=== PATIENT | male | born 1970 | race Caucasian/White ===

== ENCOUNTER 2023-10-25 11:32 | Outpatient (REF) | payer MEDICARE, MEDICAID, SELFPAY | END 2023-10-25 11:33 | disposition home or self-care (01) | LOC: HO.LAB 11:32 | PROVIDERS: PCP Internal Medicine; Visit Provider Psychiatry & Neurology Psychiatry | DX: Z79.899 Other long term (current) drug therapy (principal) | CPT/HCPCS: 36415; 80159; 85048 ==

== ENCOUNTER 2025-07-21 14:31 | Emergency (ER) | payer OTHER, SELFPAY ==
[2025-07-21 14:41] VITALS: BP 142/90; PULSE 52; O2SAT 99
[2025-07-21 14:48] VITALS: BP 140/87; PULSE 71; RESP 18; TEMP 36.2; O2SAT 98; BMI 27.1
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
[2025-07-21 16:54] LABS: MANUAL DIFF FLAG NO
[2025-07-21 16:57] LABS: Hematocrit 41.1 % (42.0-52.0); Hemoglobin 13.9 g/dl (14.0-18.0); Imm Gran Abs Auto 0.06 X10*3/uL (0.00-0.03); Imm Gran Pct Auto 0.6 % (0.0-0.4); Lymphocytes Absolute Auto 2.1 X10*3/uL (1.2-4.9); Mean Corpuscular HGB Conc 33.8 g/dl (31.0-36.0); Mean Corpuscular Hemoglobin 31.2 pg (27.0-33.0); Mean Corpuscular Volume 92.2 fL (80.0-98.0); NRBC Abs Auto 0.000 X10*3/uL (0.0-0.012); NRBC Pct Auto 0.0 /100WBC (0.0-0.2); Platelet Count 203 X10*3/uL (160-400); Red Blood Count 4.46 X10*6/uL (4.60-5.80); White Blood Count 10.4 X10*3/uL (4.8-10.8)
[2025-07-21 17:14] LABS: Alanine Aminotransferase 18 U/L (0-40); Albumin Level 4.8 g/dL (3.5-5.0); Alkaline Phosphatase 101 U/L (39-117); Anion Gap 13 (12-20); Aspartate Amino Transferase 22 U/L (5-37); Blood Urea Nitrogen 12 mg/dL (9-16); Calcium 9.5 mg/dL (8.4-10.2); Carbon Dioxide 28 mmol/L (22-29); Chloride 107 mmol/L (96-108); Creatinine Clr Calc Pharmacy 111.7; Estimated Glomerular Filt Rate > 60; Magnesium 2.2 mg/dL (1.6-2.6); Potassium 5.5 mmol/L (3.3-5.1); Sodium 142 mmol/L (135-145); Total Protein 7.3 g/dL (6.5-8.0)
--- NOTE | 2025-07-21 18:02 | PC.NURSE ---
med rec done by pharmacy and then confirmed with pt by this RN, pt states he took clozaril at his normal dose this morning but before that hadn't taken any of his meds for 5 days. also states that his olanzapine just got increased to 5mg bid and that he had not yet started taking this dose yet but was to start this new dose today
[2025-07-21 18:53] LABS: Cannabinoid Screen Urine Not Detected (Not Detect)
--- NOTE | 2025-07-21 19:10 | PHA.MEDREC ---
Addendum entered by Rolo Botello PharmD 07/21/25 19:14: reviewed Original Note: Pharmacy Consult ? Medication Reconciliation Pharmacy has reviewed the medication reconciliation done by nursing. claims match med list.
[2025-07-21 21:43] VITALS: BP 122/66; PULSE 77; RESP 18; TEMP 36.4; O2SAT 97
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
--- NOTE | 2025-07-21 23:52 | PC.NURSE ---
per Dr. Vizcarra, override medication for restraints.
--- NOTE | 2025-07-22 08:54 | PC.NURSE ---
Assumed care, report received. Pt wakes easily and is greeted by Security to discuss unit expectations. Pt remains calm and is cooperative. He uses the bathroom, eats his breakfast and is given AM medications. Pt is asked to stay in his room unitl evaluation from the care team, he is watching TV.
[2025-07-22 12:48] VITALS: PULSE 77; RESP 18
--- NOTE | 2025-07-22 15:18 | PC.NURSE ---
Pt has remained calm and cooperative. He has spent time showering, watching TV, talking with staff and walking around. His conversation remains unrelated to the topic. He has a flat affect with little facial expression or changes. He has been compliant with medicaitons.
[2025-07-22 18:41] VITALS: BP 122/66; PULSE 77; RESP 18; TEMP 36.7
== END 2025-07-22 18:42 ==
PROVIDERS: Emergency Provider Emergency Medicine
DX: F25.9 Schizoaffective disorder, unspecified (principal); R45.1 Restlessness and agitation; Z79.899 Other long term (current) drug therapy; Z51.81 Encounter for therapeutic drug level monitoring
CPT/HCPCS: 36415; 80048; 80076; 80307; 83735; 85025; 96372; 99285; J1200; J1630; J1790; J2250; S9485

== ENCOUNTER 2025-08-23 16:22 | Emergency (ER) | payer OTHER, SELFPAY ==
[2025-08-23 16:34] VITALS: BP 117/75; PULSE 90; O2SAT 97; BMI 28.9
[2025-08-23 16:41] VITALS: BP 146/78; PULSE 107; RESP 16; TEMP 36.6; O2SAT 99
--- NOTE | 2025-08-23 16:45 | PC.NURSE ---
Aleksandar presents to the ED today reporting an increase in auditory and visual hallucinations since missing two doses of his Clozapine last week. He reports he took all of his medications this morning and last night as prescribed but continues to have these hallucinations. He reports that he is seeing colors and shapes and hearing random noises rather than specific voices. Pt is calm and cooperative at this time, offering no complaints to this RN. Pts affect is flat
--- OUTSIDE RECORDS SUMMARY | 2025-08-23 16:59 | XMS_ITS | Data Portability ---
Author Organization [employer] [facility], [employer] [facility] Address [address] [place] [id number] Care Team Providers Care Clinical Case Manager Name Role Phone HIM CCA OTHER [facility] Primary Care Provider Assessment Encounter Date Assessment Date Assessment LastModified by Organization Details LastModified Time 04/10/2024 04/10/2024 I have reviewed and agree with the assessment and plan as documented by the director investor relations. I provided real-time medical direction for this encounter and was immediately available to provide additional phone-based assistance as needed. History as noted in EMR and by director investor relations. I would add / emphasize: Patient seen for report of rash around his belt line. AVSS afebrile with no reports of fevers or chills, well-appearing per medic. No rash or irritation observed by director investor relations. Patient reports he keeps his belts tight and wonders if this is what causes the erythema. Advised to avoid over tightening his belt and trialing a barrier cream to the area should he notice the rash rising again. Patient in agreement and will follow-up with care team. pallfather Not available 04/30/2024 15:32:28 Plan of Treatment Reminders Order Date Submit Date Provider Last Modified By Organization Details Last Modified Time Details Appointments None record ed. Lab None record ed. Referral None record ed. Procedures None record ed. Surgeries None record ed. Imaging None record ed. Medication Orders None record ed. Patient TargetsNo targets recorded. Patient InstructionsNo instructions recorded. Reason for Referral None Reported. Medical Equipment None Reported. Allergies Allergen ID Allergen Name Allergen Category Reaction Reaction Severity Criticality Documentation Date Start Date Code Code System Note Provider Name and Address Organization Details Recorded Time 7136 Product containin g penicilli n (product) medicatio n Not available Not available Not available 08/20/2024 [id number] [id number] SNOMED Not Available [employer] [facility] [employer] 10/29/202 4 03:48:17 Medications Name Sig Start Date Stop Date Status Note LastModified by Organization Details LastModified Time acetaminophen 325 mg tablet active Not Available Not Availabl e Not Available benztropine 0.5 mg tablet active Not Available Not Available No t Available lamotrigine 200 mg tablet active Not Available Not Available No t Available trazodone 50 mg tablet active Not Available Not Available Not Available clozapine 100 mg tablet active Not Available Not Available No t Available senna 8.6 mg tablet active Not Available Not Available Not Available ondansetron HCl 4 mg tablet active Not Available Not Available Not Available olanzapine 5 mg tablet active Not Available Not Available Not Available olanzapine 10 mg tablet active Not Available Not Available No t Available Enema Disposable 19 gram-7 gram/118 mL active Not Available Not Available Not Available olanzapine 2.5 mg tablet active Not Available Not Available No t Available amantadine HCl 100 mg capsule active Not Available Not Availab le Not Available magnesium hydroxide 400 mg/5 mL oral suspension active Not Available Not Available N ot Available levetiracetam 250 mg tablet active Not Available Not Availabl e Not Available amlodipine 10 mg tablet active Not Available Not Available No t Available bisacodyl 10 mg rectal suppository active Not Available Not Available Not Available benztropine 1 mg tablet active Not Available Not Available No t Available docusate sodium 100 mg capsule active Not Available Not Availab le Not Available omeprazole 20 mg capsule,delayed release active Not Available Not Available Not Available olanzapine 15 mg tablet active Not Available Not Available No t Available bisacodyl 5 mg tablet,delayed release active Not Available Not Available Not Available polyethylene glycol 3350 17 gram/dose oral powder active Not Available Not Available Not Available ketoconazole 2 % topical cream active Not Available Not Availa ble Not Available atropine 1 % eye drops active Not Available Not Available No t Available olanzapine 20 mg tablet active Not Available Not Available No t Available lamotrigine 100 mg tablet active Not Available Not Available No t Available lactulose 10 gram/15 mL oral solution active Not Available Not Available Not Available clozapine 50 mg tablet active Not Available Not Available Not Available clozapine 200 mg tablet active Not Available Not Available No t Available Banophen 50 mg capsule active Not Available Not Available Not Available Vitals Date Recorded Oxygen saturation Oxygen saturation in Arterial blood by Pulse oximetry Respiratory rate Heart rate Body temperature Systolic And Diastolic Provider Name and Address Organization Details Last Updated DateTime 4 98 % 98 % 16 /min 82 /min 98.6 [degF] 120/78 mm[Hg] Not Available [employer] [facility] [employer] 12:52:32 Social History None recorded. Functional Status None recorded. Mental Status None recorded. Family History Nothing Reported. Medical History No medical history recorded. Past Encounters Encounter ID Performer Location Encounter Start Date Encounter Closed Date Diagnosis/Indication Diagnosis SNOMED-CT Code Diagnosis ICD10 Code Diagnosis IMO Codes Diagnosis Note [id number] Anmol Cosby MD Main - [address] [phone] 04/21/2024 12:52:30 04/30/2024 17:10:24 Localized eruption of skin [id number] R21 Health Concerns Section Related Observation LastModified by Organization Detai ls LastModified Time None Recorded Concern Status LastModified by Organization Details LastModified Time None Recorded Advance Directives Directive None Recorded Payers Insurance Date Sequence Insurance Name Policy Number Policy Hughes Covered Member ID Hughes Member ID Guarantor Name 04/30/2024 1 [facility] - DOS ON OR AFTER 2023 - DUAL ELIGIBLE - LONGTERM OPTIONS AND ONE CARE (MEDICARE REPLACEMENT/ADV ANTAGE - HMO) Aleksandar Michaud [id number] Aleksandar Michaud Notes Date Note Type Note Provider Name and Address Organization Details Recorded Time 04/10/2024 text/html [facility] Nurse Triage Notes (Elicia Lafleur): Chief Complaints: Rash PMH: Hypertension Allergies: Penicillin Comments: Patient calling to request visit for rash. Patient reporting rash to groin areas ongoing intermittently for 3 weeks. Skin intact. Not currently applying any topical ointments. .................... .................... .................... .................... .................... .................... .................... . [facility] Coordinator Note From Jose Vang: Dispatched to the call address for the male with a rash. Upon arrival Pt states he has a rash that comes and goes. He states its right on his waist line and flairs up when its hot and he is sweating. Pt has not used any cream or ointment on the area. He states he does use a belt that he keeps fairly tight. Pt denies fevers.Pt was found opening door, CAOx4, airway open and patent, breathing non labored, able to speak in full sentences, -JVD, -HEENT, skin PWD with good turgor, abd soft non tender/distended, pupils PERRL, +CMSx4, lung sounds CTA, A-febrile. No reddening or irritation noted in the area of complaint. [facility] consulted. Pt was advised to used a barrier cream such as Buttpaste when these conditions arise. Red flags discussed. ALL times are approx. .................... .................... .................... .................... .................... .................... .................... . Disposition: Fulfilled Anmol Cosby MD [address] [facility],[address], [place], [address], [employer] 04/30/2024 15:32:40
--- NOTE | 2025-08-23 17:03 | PC.NURSE ---
RE: med rec This RN completed med rec with verbal verification from patient. Meds obtained from last visit here as well as from medication rec history and then verbally verified with patient. He reports he took all of his regularly scheduled medications last night as well as this morning per prescription
[2025-08-23 17:05] LABS: Appearance Urine Clear; Glucose Urine UA Negative (Negative); PH 7.5 (5.0-9.0); Specific Gravity - Urine <= 1.005 (1.005-1.025)
[2025-08-23 17:14] LABS: Cannabinoid Screen Urine Not Detected (Not Detect)
[2025-08-23 17:26] LABS: MANUAL DIFF FLAG NO
[2025-08-23 17:28] LABS: Hematocrit 40.6 % (42.0-52.0); Hemoglobin 13.9 g/dl (14.0-18.0); Imm Gran Abs Auto 0.05 X10*3/uL (0.00-0.03); Imm Gran Pct Auto 0.5 % (0.0-0.4); Lymphocytes Absolute Auto 1.3 X10*3/uL (1.2-4.9); Mean Corpuscular HGB Conc 34.2 g/dl (31.0-36.0); Mean Corpuscular Hemoglobin 30.6 pg (27.0-33.0); Mean Corpuscular Volume 89.4 fL (80.0-98.0); NRBC Abs Auto 0.000 X10*3/uL (0.0-0.012); NRBC Pct Auto 0.0 /100WBC (0.0-0.2); Platelet Count 177 X10*3/uL (160-400); Red Blood Count 4.54 X10*6/uL (4.60-5.80); White Blood Count 9.6 X10*3/uL (4.8-10.8)
--- NOTE | 2025-08-23 17:28 | ED_ITS ---
HPI - Psych General Chief Complaint: Psychiatric Symptoms Stated Complaint: auditory & visual hallucinations x4 days Time Seen by Provider: 08/23/25 16:38 Source: patient, EMS and old records reviewed Mode of arrival: EMS Limitations: other (poor historian) History of Present Illness ED Provider: MO MASON Narrative: 55 yo male with PMH of schizoaffective disorder present with c/o not taking his medications x 3 days. He admits he is acting weird. He has no SI/HI. His VNA came today and was worried about his behaviors. He has AH and VH hallucinations. He has no abdominal pain but threw up x 3 yesterday. NO diarrhea. He is able to eat and drink now. He has no other complaints. Related Data Home Medications ?Medication ?Instructions ?Recorded ?Confirmed amantadine HCl 100 mg capsule 100 mg PO BID 07/21/2510/23/24 amlodipine 10 mg tablet 10 mg PO DAILY 07/21/2511/16 benztropine 0.5 mg tablet 0.5 mg PO DAILY 07/21/2511/16 clozapine 100 mg tablet 100 mg PO BEDTIME 07/21/25 1 10/23/24 clozapine 200 mg tablet 200 mg PO BEDTIME 07/21/2510/23/24 lamotrigine 200 mg tablet 400 mg PO BEDTIME 07/21/2510/23/24 olanzapine 5 mg tablet 5 mg PO BID 07/21/25 5 glycopyrrolate 1 mg tablet 1 mg PO BID 08/23/25 Allergies Allergy/AdvReac Type Severity Reaction Status Date / Time Penicillins (PCN) Allergy Mild Rash Verified 08/23/25 16:36 Review of Systems 2 Review of Systems: Constitutional : No Fever, No Chills ENT/Mouth : No Ear Pain, No Nasal Congestion, No sore throat Eyes: No Eye Pain, No Swelling, No Redness Cardiovascular : No Chest Pain, No SOB Respiratory : No Cough, No Sputum, No Dyspnea Gastrointestinal : No Nausea, No Vomiting, No Diarrhea, No Hematochezia, No Melena Genitourinary : No Dysuria, No Urinary Frequency, No Hematuria Musculoskeletal : No Myalgias Skin : No Skin Lesions, No rash Neuro : No Weakness, No Numbness, No Paresthesias, No Dizziness, No Headache Psych : positive Anxiety, positive Depression, no SI/HI, pos AH/VH All other systems reviewed and are negative [facility] Past Medical History Attestation statement: The following information was validated with the patient. Source: old records reviewed Medical History Schizoaffective disorder Social History Social History Patient Tobacco Use Status: Tobacco use Unknown Smoked in Last 30 Days: Yes Use of substances other than those prescribed or required for medical reasons: No Advance Directives: No Advance Directives Information Provided: No Physical Exam 2 Vital Signs: Vital Signs: Last Vital Signs Temp 97.8 F 08/24/25 10:25 Pulse 90 08/24/25 10:25 Resp 18 08/24/25 10:25 BP 105/68 08/24/25 10:25 Pulse Ox 98 08/24/25 10:25 O2 Del Method Room Air 08/24/25 06:14 BMI result Body Mass Index 28.9 Appearance: Alert. Oriented X3. No acute distress. Eyes: Pupils equal, round and reactive to light. ENT: Pharynx normal. Neck: Normal inspection. Neck supple. CVS: Normal heart rate and rhythm. Pulses normal. Respiratory: No respiratory distress. Breath sounds normal. Abdomen: Soft and nontender. he is eating a drinking Skin: Skin warm and dry. Normal skin color. Extremities: No lower extremity edema. Neuro: Oriented X 3. No motor deficit. No sensory deficit. cranial nerve exam not applicable Course Course Course Narrative: 08/24/25 10am phys obs ended. discharged home MO Medications Administered Discontinued Medications Generic Name Dose Route Start Last Admin Trade Name Ronen PRN Reason Stop Dose Admin Amantadine HCl 100 mg 08/23/25 23:00 08/24/25 08:47 Amantadine Hcl 100 Mg Capsule PO 100 mg BID ASIF Administration Amlodipine Besylate 10 mg 08/24/25 09:00 08/24/25 08:03 Amlodipine Besylate 10 Mg Tablet PO 10 mg DAILY ASIF Administration Protocol Benztropine Mesylate 0.5 mg 08/24/25 09:00 08/24/25 08:03 Benztropine Mesylate 0.5 Mg Tablet PO 0.5 mg DAILY ASIF Administration Glycopyrrolate 1 mg 08/23/25 23:00 08/24/25 08:03 Glycopyrrolate 1 Mg Tablet PO 1 mg BID ASIF Administration Lamotrigine 400 mg 08/23/25 23:00 08/23/25 23:44 Lamotrigine 100 Mg Tablet PO Not Given BEDTIME ASIF Lorazepam 2 mg 08/23/25 21:03 08/23/25 21:09 Lorazepam 1 Mg Tablet PO 08/23/25 21:04 2 mg ONCE ONE Administration Lorazepam 2 mg 08/23/25 22:56 08/23/25 23:00 Lorazepam 1 Mg Tablet PO 08/23/25 22:57 2 mg ONCE ONE Administration Olanzapine 5 mg 08/23/25 21:03 08/23/25 21:09 Olanzapine 5 Mg Tablet PO 08/23/25 21:04 5 mg ONCE ONE Administration Olanzapine 5 mg 08/24/25 09:00 08/24/25 08:03 Olanzapine 5 Mg Tablet PO 5 mg BID ASIF Administration Olanzapine 10 mg 08/23/25 22:56 08/23/25 23:00 Olanzapine 10 Mg Tablet PO 08/23/25 22:57 10 mg ONCE ONE Administration Medical Decision Making Medical Decision Making [facility] Narrative: 55 yo male with PMH of schizoaffective disorder present with c/o not taking his meds x 3 days with AH/VH he has no SI/HI. He did vomit yesterday but is tolerating PO now. Will obtain labs, UA, request CARE team In a.m. patient was evaluated by care team. Not suicidal not homicidal. Feels well. Wants to go home. Currently in stable condition. Differential Diagnosis Differential Diagnoses: The differential diagnosis associated with the presentation includes schizoaffective disorder, lyte abnormality, viral syndrome Admission/Observation Consideration of admission/observation: Escalation of care including admission/observation considered phys obs started at 558pm pending CARE team Consult Healthcare Provider Management of the patient was discussed with: Behavioral Health Provider Lab Data [facility] Lab Attestation statement: I reviewed the patient's lab results. will repeat BMP in AM 08/23/25 17:22 08/23/25 17:22 Labs: Lab Results 08/23/25 08/23/25 Range/Units 16:56 17:22 WBC 9.6 (4.8-10.8) X10*3/uL RBC 4.54 L (4.60-5.80) X10*6/uL Hgb 13.9 L (14.0-18.0) g/dl Hct 40.6 L (42.0-52.0) % MCV 89.4 (80.0-98.0) fL MCH 30.6 (27.0-33.0) pg MCHC 34.2 (31.0-36.0) g/dl RDW 13.1 (11.0-16.0) % Plt Count 177 (160-400) X10*3/uL MPV 9.8 (9.4-12.4) fL Immature Gran % (Auto) 0.5 H (0.0-0.4) % Neut % (Auto) 73.9 H (45-73) % Lymph % (Auto) 13.8 L (20-40) % [place] % (Auto) 11.3 H (2-11) % Eos % (Auto) 0.2 (0-4) % Baso % (Auto) 0.3 (0-2) % Lymph # (Auto) 1.3 (1.2-4.9) X10*3/uL [place] # (Auto) 1.1 (0.1-1.2) X10*3/uL Eos # (Auto) 0.0 (0.0-0.4) X10*3/uL Baso # (Auto) 0.0 (0.0-0.2) X10*3/uL Abs Immat Gran (auto) 0.05 H (0.00-0.03) X10*3/uL Absolute Neuts (auto) 7.1 (2.0-8.3) x10*3/uL Absolute Nucleated RBC 0.000 (0.0-0.012) X10*3/uL Nucleated RBC % (auto) 0.0 (0.0-0.2) /100WBC Sodium 132 L (135-145) mmol/L Potassium 3.6 D (3.3-5.1) mmol/L Chloride 98 (96-108) mmol/L Carbon Dioxide 24 (22-29) mmol/L Anion Gap 14 (12-20) BUN 10 (9-16) mg/dL Creatinine 0.87 (0.5-1.4) mg/dL Estim Creat Clear Calc 102.4 Estimated GFR > 60 Random Glucose 96 (60-115) mg/dL Calcium 8.5 D (8.4-10.2) mg/dL Total Bilirubin 0.6 (0.0-1.0) mg/dL Direct Bilirubin 0.2 (0.0-0.5) mg/dL AST 31 (5-37) U/L ALT 20 (0-40) U/L Alkaline Phosphatase 101 (39-117) U/L Total Protein 7.3 (6.5-8.0) g/dL Albumin 4.8 (3.5-5.0) g/dL Lipase 9 (8-78) U/L Urine Color Yellow Urine Appearance Clear Urine pH 7.5 (5.0-9.0) Ur Specific Jacob <= 1.005 (1.005-1.025) Urine Protein Negative (Neg-Trace) mg/dL Urine Glucose (UA) Negative (Negative) mg/dL Urine Ketones Trace (Negative) mg/dL Urine Blood Negative (Negative) Urine Nitrite Negative (Negative) Ur Leukocyte Esterase Negative (Negative) Urine Opiates Screen Not Detected (Not Detect) Ur Buprenorphine Scrn Not Detected (Not Detect) ng/mL Ur Oxycodone Screen Not Detected (Not Detect) ng/mL Urine Methadone Screen Not Detected (Not Detect) ng/mL Urine Fentanyl Screen Not Detected (Not Detect) Ur Barbiturates Screen Not Detected (Not Detect) Ur Phencyclidine Scrn Not Detected (Not Detect) Ur Amphetamines Screen Not Detected (Not Detect) U Benzodiazepines Scrn Not Detected (Not Detect) Urine Cocaine Screen Not Detected (Not Detect) U Marijuana (THC) Screen Not Detected (Not Detect) Ethyl Alcohol < 10 mg/dL Independent Historian Clinical information obtained from an independent historian. History obtained from or confirmed by: EMS External Record Review External record reviewed: Inpatient record and Outpatient record Social Determinants Patient?s care significantly limited by Social Determinants of Health including: Problems related to primary support group Discharge Plan Discharge Clinical Impression: Schizoaffective disorder Patient Disposition: Home, Self-Care Instructions: Schizoaffective Disorder (ED) Additional Instructions: Please follow-up as per care team Prescriptions: No Action benztropine 0.5 mg tablet 0.5 mg PO DAILY lamotrigine 200 mg tablet 400 mg PO BEDTIME clozapine 100 mg tablet 100 mg PO BEDTIME olanzapine 5 mg tablet 5 mg PO BID Rx Instructions: 5mg is a new dose, he was supposed to start today 07/21. was taking 2.5mg and last took that 5 days ago amantadine HCl 100 mg capsule 100 mg PO BID amlodipine 10 mg tablet 10 mg PO DAILY clozapine 200 mg tablet 200 mg PO BEDTIME glycopyrrolate 1 mg tablet 1 mg PO BID Referrals: Physician,Aurea J [Primary Care Provider, Medical] - 08/26/25 Interventions: [place]-Suicide Risk Severity Scale Last Done: 08/23/25 16:41 ED Discharge Assessment Last Done: 08/24/25 10:25 Discharge Date/Time: 08/24/25 10:26 Print Language: Malay
[2025-08-23 17:46] LABS: Alanine Aminotransferase 20 U/L (0-40); Albumin Level 4.8 g/dL (3.5-5.0); Alkaline Phosphatase 101 U/L (39-117); Anion Gap 14 (12-20); Aspartate Amino Transferase 31 U/L (5-37); Blood Urea Nitrogen 10 mg/dL (9-16); Calcium 8.5 mg/dL (8.4-10.2); Carbon Dioxide 24 mmol/L (22-29); Chloride 98 mmol/L (96-108); Creatinine Clr Calc Pharmacy 102.4; Estimated Glomerular Filt Rate > 60; Potassium 3.6 mmol/L (3.3-5.1); Sodium 132 mmol/L (135-145); Total Protein 7.3 g/dL (6.5-8.0)
[2025-08-23 17:56] LABS: Lipase 9 U/L (8-78)
--- NOTE | 2025-08-23 21:49 | PC.NURSE ---
Assumed care at 1845. Presents with flat affect, but calm and cooperative with care. Visible on the unit, alternating between spending time in room and watching tv in the milieu. Endorses +AVH, but does not elaborate further. Denies SI/HI. Feels safe on the unit. Agreeable to alert staff if feeling unsafe. Appeared restless to t/w, frequently pacing throughout the unit. MD Rivera made aware, 1x order for 2mg Ativan & 5mg Zyprexa obtained/administered, pending effectiveness. No signs of aggression observed. 15 minute safety checks ongoing. Plan of care ongoing...
--- NOTE | 2025-08-24 00:07 | PC.NURSE ---
Per MD Rivera, additional verification is needed for medications. Pt unsure of VNA contact information. Medications ordered accidentally, MD Morales unaware of current plan regarding medications. HS scheduled medications HELD.
[2025-08-24 06:14] VITALS: BP 105/68; PULSE 90; RESP 18; O2SAT 98
--- NOTE | 2025-08-24 07:00 | PC.NURSE ---
Assumed care of patient at 0645, patient calm and cooperative, sitting in common area in pod, offering no complaints to this RN. Continue plan of care for CARE team re-assessment
--- NOTE | 2025-08-24 07:50 | PHA.MEDREC ---
Pharmacy Consult ? Medication Reconciliation Pharmacy has reviewed the medication reconciliation done by RN. Confirmed with AGNES Ross that patients last dose of clozaril was 08/22/25 per visiting nursing
--- NOTE | 2025-08-24 08:09 | MHC.CARE ---
Pt denies SI, HI, and A/V/H. He has been medication compliant since arriving in the ED. Pt does not present as an imminent risk or meet the criteria for a higher level of care. He will D/C home to follow up with current providers.
[2025-08-24 10:25] VITALS: BP 105/68; PULSE 90; RESP 18; TEMP 36.6; O2SAT 98
== END 2025-08-24 10:26 | disposition home or self-care (01) ==
PROVIDERS: Emergency Provider Emergency Medicine
DX: F25.9 Schizoaffective disorder, unspecified (principal); R11.10 Vomiting, unspecified; F99 Mental disorder, not otherwise specified; Z79.899 Other long term (current) drug therapy; Z51.81 Encounter for therapeutic drug level monitoring; Z91.148 Patient's other noncompliance with medication regimen for other reason
CPT/HCPCS: 36415; 80053; 80307; 81003; 82248; 83690; 85025; 99285; S9485

== ENCOUNTER 2025-08-27 14:00 | Emergency (ER) | payer OTHER, SELFPAY ==
[2025-08-27 14:10] VITALS: BP 140/70; PULSE 64; O2SAT 97; BMI 27.1
[2025-08-27 14:16] VITALS: BP 136/79; PULSE 64; RESP 22; O2SAT 96
--- NOTE | 2025-08-27 14:19 | ED.GENADULT ---
HPI - General Adult General Chief complaint: Psychiatric Symptoms Stated complaint: section 12 Time Seen by Provider: 08/27/25 14:15 Source: patient and EMS Mode of arrival: EMS Limitations: no limitations History of Present Illness ED Provider: Xin Musa PA-C HPI narrative: Patient is a 55 year old assigned male at with a history of schizoaffective disorder presenting to the emergency department today with delusions. Patient states that he feels fine. N reported the patient is delusional in reporting that he is a [place]. Patient denies any other complaints at this time. Related Data Home Medications ?Medication ?Instructions ?Recorded ?Confirmed amantadine HCl 100 mg capsule 100 mg PO BID 07/21/25 08/27/25 amlodipine 10 mg tablet 10 mg PO DAILY 07/21/25 08/27/25 benztropine 0.5 mg tablet 0.5 mg PO DAILY 07/21/25 08/27/25 clozapine 100 mg tablet 300 mg PO BEDTIME 07/21/25 08/27/25 lamotrigine 200 mg tablet 400 mg PO BEDTIME 07/21/25 08/27/25 olanzapine 5 mg tablet 5 mg PO BID 07/21/25 08/27/25 glycopyrrolate 1 mg tablet 1 mg PO BID 08/23/25 08/27/25 clozapine 200 mg tablet 200 mg PO BEDTIME 08/28/25 08/28/25 Allergies Allergy/AdvReac Type Severity Reaction Status Date / Time Penicillins (PCN) Allergy Mild Rash Verified 08/27/25 14:14 Review of Systems Constitutional: Constitutional: Reports as per HPI Eyes: Eyes: Reports as per HPI ENT: Reports as per HPI Cardiovascular: Cardiovascular: Reports as per HPI Respiratory: Respiratory: Reports as per HPI Gastrointestinal: Gastrointestinal: Reports as per HPI Genitourinary: Genitourinary: Reports as per HPI Musculoskeletal: Musculoskeletal: Reports as per HPI Integumentary/Breasts: Skin/Breast: Reports as per HPI Neurologic: Reports as per HPI Psychiatric: Psychiatric: Reports as per HPI Endocrine: Endocrine: Reports as per HPI Hematologic/Lymphatic: Hematologic/Lymphatic: Reports as per HPI Allergic/Immunologic: Allergic/Immunologic: Reports as per HPI PMF Past Medical History Attestation statement: The following information was validated with the patient. Source: old records reviewed and nursing notes reviewed Medical History Schizoaffective disorder Social History Social History Unable to assess alcohol history related to: Unknown Patient Tobacco Use Status: Tobacco use Unknown Advance Directives: No Advance Directives Information Provided: No Do you have a plan to hurt others: No Plan Physical Exam ED Vital Signs: Vital Signs - 24 hr 08/28/25 08:26 Temperature 98.1 F Pulse Rate 73 Blood Pressure 130/80 Pulse Oximetry 98 Oxygen Delivery Method Room Air BMI result Body Mass Index 27.1 Const General: cooperative, no acute distress, alert and awake Nutritional Appearance: well nourished Orientation/consciousness: patient oriented x3 HENMT Head: Yes normal to inspection and Yes atraumatic Ears: hearing grossly normal bilaterally and external ears normal General nose exam: Normal external nose present, no nasal discharge noted and no epistaxis Face and sinus: Yes normal facial exam, No abrasion and No laceration Mouth: Normal oral and palatal mucosa present, no drooling and no muffled voice Eyes General: appearance normal, both eyes and all related structures Periorbital: periorbital findings normal Eyelids: Yes eyelids normal Conjunctivae: conjunctivae normal Pupils: Equal, round and reactive pupils present EOM: EOMs intact bilaterally Neck Neck: Yes normal visual inspection and Yes full ROM Resp Effort & Inspection: normal respiratory effort and able to speak in complete sentences Neuro General: patient oriented x3, moves all extremities and CN's II-XI intact bilaterally Cranial nerves: Yes Equal, round and reactive pupils present Cognition (Neuro): normal cognition Extrem General: Yes normal to inspection, Yes full ROM and Yes capillary refill normal Psych Appearance: grossly normal Mental Status: mental status grossly normal Attitude: cooperative Course Course Course Narrative: 9:46 AM 08/28/2025 (Dr. Fred Brown): Time: 09:47 Date: 08/28/25 Provider: Fred Brown, DO You were seen in our Emergency Department today for treatment of a behavioral health issue. It is important after your visit that you follow up with either your behavioral health provider or a primary care doctor within 7 days.? Time: 09:47 Date: 08/28/25 Provider: Fred Brown, DO Patient in physician observation for psychiatric evaluation.? No acute events reported overnight. No current complaints. VS stable.? Patient is in bed search status. Will continue to monitor. 08/28/2025 1620 Accepted at [facility]. Patient will be discharged. Medical Decision Making Medical Decision Making [facility] Narrative: Patient is a 55 year old assigned male at with a history of schizoaffective disorder presenting to the emergency department today with delusions. Patient's physical exam was as noted in the physical exam portion of this note. Patient's blood work was unremarkable. I explained my physical exam findings as well as all test results to the patient. I answered all questions asked by the patient. Patient's disposition is pending CARE team evaluation. Patient placed in observation pending CARE team evaluation and disposition determination at 1418 on 08/27/2025. 08/27/2025 1530 Xin Musa PA-C ---> Patient evaluated by the CARE team. Patient has been deemed an inpatient level of psychiatric care. Patient will either be admitted here at [facility] on our psychiatric floor or transferred to an appropriate psychiatric unit. Differential Diagnosis Differential Diagnoses: The differential diagnosis associated with the presentation includes Delusional Schizoaffective disorder Admission/Observation Consideration of admission/observation: Escalation of care including admission/observation considered Patient will either be admitted here at [facility] on our psychiatric floor or transferred to an appropriate psychiatric unit. Consult Healthcare Provider Management of the patient was discussed with: Behavioral Health Provider (recommend inpatient level of psychiatric care as noted in the MDM Rationale portion of this note. ) Lab Data [facility] Lab Attestation statement: I reviewed the patient's lab results. My interpretation of these results are in the MDM Rationale portion of this note. 08/27/25 14:30 08/27/25 14:30 Labs: Lab Results 08/27/25 Range/Units 14:30 WBC 9.6 (4.8-10.8) X10*3/uL RBC 4.57 L (4.60-5.80) X10*6/uL Hgb 14.1 (14.0-18.0) g/dl Hct 41.5 L (42.0-52.0) % MCV 90.8 (80.0-98.0) fL MCH 30.9 (27.0-33.0) pg MCHC 34.0 (31.0-36.0) g/dl RDW 13.6 (11.0-16.0) % Plt Count 242 D (160-400) X10*3/uL MPV 9.9 (9.4-12.4) fL Immature Gran % (Auto) 1.3 H (0.0-0.4) % Neut % (Auto) 60.4 (45-73) % Lymph % (Auto) 27.4 (20-40) % [place] % (Auto) 10.2 (2-11) % Eos % (Auto) 0.2 (0-4) % Baso % (Auto) 0.5 (0-2) % Lymph # (Auto) 2.6 (1.2-4.9) X10*3/uL [place] # (Auto) 1.0 (0.1-1.2) X10*3/uL Eos # (Auto) 0.0 (0.0-0.4) X10*3/uL Baso # (Auto) 0.1 (0.0-0.2) X10*3/uL Abs Immat Gran (auto) 0.12 H (0.00-0.03) X10*3/uL Absolute Neuts (auto) 5.8 (2.0-8.3) x10*3/uL Absolute Nucleated RBC 0.000 (0.0-0.012) X10*3/uL Nucleated RBC % (auto) 0.0 (0.0-0.2) /100WBC Smear Tech's Comments VERIFIED Sodium 137 (135-145) mmol/L Potassium 4.2 (3.3-5.1) mmol/L Chloride 102 (96-108) mmol/L Carbon Dioxide 25 (22-29) mmol/L Anion Gap 14 (12-20) BUN 7 L (9-16) mg/dL Creatinine 0.82 (0.5-1.4) mg/dL Estim Creat Clear Calc 111.7 Estimated GFR > 60 Random Glucose 91 (60-115) mg/dL Calcium 9.2 D (8.4-10.2) mg/dL Total Bilirubin 0.6 (0.0-1.0) mg/dL AST 25 (5-37) U/L ALT 25 (0-40) U/L Alkaline Phosphatase 106 (39-117) U/L Total Protein 7.6 (6.5-8.0) g/dL Albumin 4.9 (3.5-5.0) g/dL Salicylates < 5.0 L (15-30) mg/dL Acetaminophen < 3 (<30) mcg/mL Ethyl Alcohol < 10 mg/dL COVID-19 (ALIA) Negative (Negative) COVID-19 Clin Com See Note Independent Historian Clinical information obtained from an independent historian. History obtained from or confirmed by: EMS (EMS provided additional history and confirmed the history provided by the patient. ) Critical Care Time Critical Care Time Critical Care Time: Yes Total Critical Care Time: 38 Attestation: I spent 38 minutes of Critical Care Time with this patient. This does not include time spent on separately reported billable procedures. Discharge Plan Discharge Clinical Impression: Delusions Patient Disposition: Xfer Psychiatric Hosp Transfer Details: [facility] Prescriptions: No Action benztropine 0.5 mg tablet 0.5 mg PO DAILY lamotrigine 200 mg tablet 400 mg PO BEDTIME clozapine 100 mg tablet 300 mg PO BEDTIME olanzapine 5 mg tablet 5 mg PO BID Rx Instructions: 5mg is a new dose, he was supposed to start today 07/21. was taking 2.5mg and last took that 5 days ago amantadine HCl 100 mg capsule 100 mg PO BID amlodipine 10 mg tablet 10 mg PO DAILY glycopyrrolate 1 mg tablet 1 mg PO BID clozapine 200 mg tablet 200 mg PO BEDTIME Interventions: [place]-Suicide Risk Severity Scale Last Done: 08/28/25 16:17 Print Language: Greenlandic
[2025-08-27 14:55] LABS: Hematocrit 41.5 % (42.0-52.0); Hemoglobin 14.1 g/dl (14.0-18.0); Imm Gran Pct Auto 1.3 % (0.0-0.4); Mean Corpuscular HGB Conc 34.0 g/dl (31.0-36.0); Mean Corpuscular Hemoglobin 30.9 pg (27.0-33.0); Mean Corpuscular Volume 90.8 fL (80.0-98.0); Platelet Count 242 X10*3/uL (160-400); Red Blood Count 4.57 X10*6/uL (4.60-5.80); White Blood Count 9.6 X10*3/uL (4.8-10.8)
[2025-08-27 14:56] LABS: Imm Gran Abs Auto 0.12 X10*3/uL (0.00-0.03); Lymphocytes Absolute Auto 2.6 X10*3/uL (1.2-4.9); NRBC Abs Auto 0.000 X10*3/uL (0.0-0.012); NRBC Pct Auto 0.0 /100WBC (0.0-0.2); SCAN SMEAR FLAG 1
[2025-08-27 15:08] LABS: Acetaminophen LAB < 3 mcg/mL (<30); Alanine Aminotransferase 25 U/L (0-40); Albumin Level 4.9 g/dL (3.5-5.0); Alkaline Phosphatase 106 U/L (39-117); Anion Gap 14 (12-20); Aspartate Amino Transferase 25 U/L (5-37); Blood Urea Nitrogen 7 mg/dL (9-16); Calcium 9.2 mg/dL (8.4-10.2); Carbon Dioxide 25 mmol/L (22-29); Chloride 102 mmol/L (96-108); Creatinine Clr Calc Pharmacy 111.7; Estimated Glomerular Filt Rate > 60; Potassium 4.2 mmol/L (3.3-5.1); Salicylate < 5.0 mg/dL (15-30); Sodium 137 mmol/L (135-145); Total Protein 7.6 g/dL (6.5-8.0)
[2025-08-27 15:10] LABS: COVID-19 Test Negative (Negative); IDNOW Serial# 55D5AD1C
[2025-08-27 15:36] LABS: MANUAL DIFF FLAG SCAN
--- OUTSIDE RECORDS SUMMARY | 2025-08-27 17:51 | XMS_ITS | Data Portability ---
Author Organization Topic - [employer] [facility], [place] [employer] [facility] Address [address] [place] [id number] Care Team Providers Care Customer Care Consultant Name Role Phone HIM [facility] OTHER [facility] Primary Care Provider Assessment Encounter Date Assessment Date Assessment LastModified by Organization Details LastModified Time 04/10/2024 04/10/2024 I have reviewed and agree with the assessment and plan as documented by the data collection specialist. I provided real-time medical direction for this encounter and was immediately available to provide additional phone-based assistance as needed. History as noted in EMR and by data collection specialist. I would add / emphasize: Patient seen for report of rash around his belt line. AVSS afebrile with no reports of fevers or chills, well-appearing per medic. No rash or irritation observed by data collection specialist. Patient reports he keeps his belts tight [...] Name and Address Organization Details Recorded Time 8446 Product containin g penicilli n (product) medicatio n Not available Not available Not available 08/20/2024 [id number] SNOMED Not Available [employer] - production 10/29/202 [...] ICD10 Code Diagnosis IMO Codes Diagnosis Note [id number] Anmol Cosby MD Main - [address] [phone] 04/21/2024 12:52:30 04/30/2024 17:10:24 Localized eruption of skin [id number] R21 Health Concerns Section Related Observation LastModified by Organization Detai ls LastModified Time None Recorded Concern Status LastModified by Organization Details LastModified Time None Recorded Advance Directives Directive None Recorded Payers Insurance Date Sequence Insurance Name Policy Number Policy Hughes Covered Member ID Hughes Member ID Guarantor Name 04/30/2024 1 [facility] - DOS ON OR AFTER 2023 - DUAL ELIGIBLE - NURSING HOME OPTIONS AND ONE CARE (MEDICARE REPLACEMENT/ADV ANTAGE - HMO) Aleksandar Michaud [id number] Aleksandar Michaud Notes Date Note Type Note [...] .................... .................... .................... .................... .................... .................... . Financial Underwriter Note From Jose Vang: Dispatched to the [...] . Disposition: Fulfilled Anmol Cosby MD [address], [place], [address], Topic - [place] 04/30/2024 15:32:40
--- NOTE | 2025-08-28 05:10 | PC.NURSE ---
Presents with flat affect, able to make needs known. Not visible on the unit, spent majority of evening in bed resting. Observed to be internally preoccupied and responding to internal stimuli. No HS meds or PRN's used. Denies pain/discomfort. Requested food/snacks. Able to make needs known appropriately. Remains in behavioral control. 15 minute safety checks ongoing. Plan of care ongoing.
[2025-08-28 08:26] VITALS: BP 130/80; PULSE 73; TEMP 36.7; O2SAT 98
--- NOTE | 2025-08-28 09:32 | MHC.CARE ---
Danelle with [facility] PACT team, calls. She reports that patient has missed roughly one week of his [place] medication, specifically Clozaril and Zyprexa. They share that he was recently discharged from [facility] on 08/07/2025 but they state he was not at his baseline when discharged. Since d/c not consistent w anti-psychotics. She will fax the [place] and any paperwork that seems relevant
--- NOTE | 2025-08-28 09:47 | MHC.CARE ---
Addendum entered by Dee Miranda RN 08/28/25 16:51: Placement to [facility] was canceled. Pt was accepted to [facility]. Pod RN called accepting facility for n2n ([phone]). ETA was for 5pm but next available is fine. Jane booked pickup for 5:30pm. The accepting provider is Dr. Allen and the address is [address] [place] [address] [place] [address]. Original Note: Aleksandar has been accepted to [facility]. The accepting provider is Dr. Mcdaniel and the ETA is CLARE. Nurse to nurse has been completed. The address is [address] [place] [id number]. Pod RN and CARE Team have been notified and are working on the section.
--- NOTE | 2025-08-28 13:50 | PHA.MEDREC ---
Addendum entered by Theresa Driscoll [facility] 08/28/25 14:21: REVIEWED BY PHARMACIST Original Note: Pharmacy Consult ? Medication Reconciliation Pharmacy reviewed med rec done by nursing. Clozapine 100mg 3 tabs (300mg) at bedtime confirmed on med rec, LF 08/07 for 30 days; claims show 200mg QD LF 08/04 for 30 days. Spoke with pt and he confirmed he is taking both the Clozapine 100mg 3 tabs (300mg) and Clozapine 200mg 1 tab at bedtime together and states he thinks he took them yesterday before coming in but if not entirely sure at this time; pt states he knows he took it in the last 2 days.
[2025-08-28 17:48] VITALS: BP 130/80; PULSE 73; RESP 22; TEMP 36.7; O2SAT 98
== END 2025-08-28 17:50 ==
PROVIDERS: Physician Assistant Medical; Emergency Provider Emergency Medicine
DX: F22 Delusional disorders (principal); Z03.818 Encounter for observation for suspected exposure to other biological agents ruled out; F25.9 Schizoaffective disorder, unspecified; Z79.899 Other long term (current) drug therapy
CPT/HCPCS: 80053; 80143; 80179; 80307; 85025; 87635; 99285